=== PATIENT | female | born 1945 | race Two or more races ===

== ENCOUNTER → 2023-05-27 | Emergency (ER) | payer OTHER ==
[~2023-05-27] VITALS: Ht 152.4 cm; Wt 45.4 kg
[~2023-05-27] MED LIST: EFFEXOR; EXELON1 EAC2; ZYPREXA10 MG
== END | disposition home or self-care (01) ==
LOC: ER 21:30
DX: K94.23 Gastrostomy malfunction (principal)

== ENCOUNTER 2024-02-20 12:35 | Inpatient (IN) | payer OTHER ==
[~2024-02-20] VITALS: Ht 157.5 cm; Wt 43.1 kg
[2024-02-20] MEDS ORDERED: 0.9 % SODIUM CHLORIDE 1,000 ML IV ONE (14:30)
[2024-02-20] MEDS ORDERED: PANTOPRAZOLE SODIUM 40 MG/VIAL VIAL IV PUSH ONE (14:30)
[2024-02-20] MEDS ORDERED: ONDANSETRON HCL 2 MG/ML VIAL IV ONE (14:30)
[2024-02-20] MEDS ORDERED: CEFTRIAXONE SODIUM 1,000 MG VIAL IV ONE ×2 (14:30→18:00)
[2024-02-20] MEDS ORDERED: ONDANSETRON HCL 2 MG/ML VIAL ONE (14:33)
[2024-02-20] MEDS ORDERED: CEFTRIAXONE SODIUM 1,000 MG VIAL ONE ×2 (14:34→19:04)
[2024-02-20 14:56] LABS: HEMATOCRIT 42.1 % (36.0-45.00); HEMOGLOBIN 14.4 g/dL (12.0-15.00); MEAN CELL VOLUME 93.2 fL (80.00-100.00); MEAN CORPUSCULAR HGB CONC 34.3 g/dl (32.0-36.0); PLATELET COUNT 277 K/uL (150-450); RED BLOOD COUNT 4.52 M/uL (4.00-6.00); RED CELL DISTRIBUTION WIDTH 13.7 % (11.5-14.5)
[2024-02-20 15:14] LABS: PH,URINE 6.5 (5.0-8.0); URINE APPEARANCE Cloudy; URINE BILIRRUBIN Negative (NEGATIVE); URINE BLOOD Trace; URINE COLOR Yellow; URINE GLUCOSE Negative (NEGATIVE); URINE LEUKOCYTE Moderate; URINE NITRATE Negative; URINE PROTEIN 30 (NEGATIVE)
[2024-02-20 15:18] LABS: URINE CAST 12.82 uL (0.0-1.40); URINE EPITHELIAL CELLS 18.5 uL (0.0-38.8); URINE RBC 18.9 uL (0.0-20.8); URINE WBC 263.9 uL (0.0-23.2)
[2024-02-20 16:07] LABS: URINE BACTERIA > 9821.5 uL (0.0-1933); URINE KETONE 40 (NEGATIVE)
[2024-02-20 16:16] LABS: INR 1.08; PROTHROMBIN TIME 11.7 SECONDS (9.0-11.5)
[2024-02-20 16:19] LABS: ALBUMIN 3.3 gm/dL (3.4-5.0); BILIRUBIN TOTAL 0.28 mg/dL (0.3-1.2); CALCIUM 9.5 mg/dL (8.5-10.1); CREATININE SERUM 1.02 mg/dL (0.55-1.02); GFR 52.28; GLOBULINA 3.7 G/DL (2.4-3.5); POTASSIUM 3.96 mEq/L (3.5-5.1)
[2024-02-20 18:55] LABS: ABG PH 7.439 (7.35-7.45); ABG pCO2 46.5 mmHg (35-45)
[2024-02-20 18:56] LABS: ABG PO2 79.1 mmHg (80-100); BASE EXCESS 5.7 mmol/l; BICARBONATE 30.8 mmol/l (23-25); SaO2 94.5 %; Tco2 32.3 mmol/l; o2 21 %
[2024-02-20 18:57] LABS: allen test SATISFACTORY; puncture site RADIAL LEFT
[2024-02-20] MEDS ORDERED: PANTOPRAZOLE SODIUM 40 MG/VIAL VIAL IV ONE (19:30)
[2024-02-20] MEDS ORDERED: 0.9 % SODIUM CHLORIDE 1,000 ML IV STA (19:51)
[2024-02-20] MEDS ORDERED: CEFTRIAXONE SODIUM 1,000 MG VIAL IV STA (20:00)
[2024-02-20] MEDS ORDERED: METROnidazole 500 MG TABLET PO STA (20:03)
[2024-02-20] MEDS ORDERED: NOREPINEPHRINE BITARTRATE 8 MG in DEXTROSE 5 % IN WATER 250 ML IV SCH (20:15)
[2024-02-20] MEDS ORDERED: RINGERS SOLUTION,LACTATED 1,000 ML IV SCH (20:30)
[2024-02-20 20:49] LABS: HEMATOCRIT 40.2 % (36.0-45.00); HEMOGLOBIN 13.5 g/dL (12.0-15.00); MEAN CELL VOLUME 95.3 fL (80.00-100.00); MEAN CORPUSCULAR HEMOGLOBIN 32.1 pg (27.00-32.0); MEAN CORPUSCULAR HGB CONC 33.7 g/dl (32.0-36.0); PLATELET COUNT 272 K/uL (150-450); RED BLOOD COUNT 4.21 M/uL (4.00-6.00); RED CELL DISTRIBUTION WIDTH 13.7 % (11.5-14.5)
[2024-02-20] MEDS ORDERED: PANTOPRAZOLE SODIUM 40 MG/VIAL VIAL IV SCH (21:00)
[2024-02-20 21:39] VITALS: BP 104/53
[2024-02-20 23:00] VITALS: BP 103/50; O2SAT 100
[2024-02-20 23:27] LABS: CALCIUM 9.2 mg/dL (8.5-10.1); CHOL HDL RATIO 2.4 (0-5.0); CREATININE SERUM 1.22 mg/dL (0.55-1.02); GFR 42.52; POTASSIUM 3.72 mEq/L (3.5-5.1)
[2024-02-21] VITALS (11 sets, daily range): BP systolic 94–171; BP diastolic 50–65; O2SAT 97–100
[2024-02-21] MEDS ORDERED: PIPERACILLIN/TAZOBACTAM SODIUM 2.25 GM in DEXTROSE 5 % IN WATER 50 ML IV SCH
[2024-02-21] MEDS ORDERED: METROnidazole 500 MG TABLET PO SCH (01:00)
[2024-02-21 06:23] LABS: HEMATOCRIT 33.4 % (36.0-45.00); HEMOGLOBIN 11.4 g/dL (12.0-15.00); MEAN CELL VOLUME 94.3 fL (80.00-100.00); MEAN CORPUSCULAR HEMOGLOBIN 32.3 pg (27.00-32.0); MEAN CORPUSCULAR HGB CONC 34.2 g/dl (32.0-36.0); PLATELET COUNT 235 K/uL (150-450); RED BLOOD COUNT 3.55 M/uL (4.00-6.00); RED CELL DISTRIBUTION WIDTH 13.3 % (11.5-14.5)
[2024-02-21 06:53] LABS: ALBUMIN 2.9 gm/dL (3.4-5.0); BILIRUBIN TOTAL 0.3 mg/dL (0.3-1.2); CALCIUM 9.4 mg/dL (8.5-10.1); CREATININE SERUM 0.95 mg/dL (0.55-1.02); GFR 56.74; GLOBULINA 3.1 G/DL (2.4-3.5); MAGNESIUM 2.2 mg/dL (1.8-2.4); PHOSPHOROUS 3.1 mg/dL (2.5-4.9); POTASSIUM 4.03 mEq/L (3.5-5.1)
[2024-02-21] MEDS ORDERED: CHLORHEXIDINE GLUCONATE 120 ML BOTTLE TOP ONE (08:08)
[2024-02-21] MEDS ORDERED: CEFTRIAXONE SODIUM 2,000 MG in 0.9 % SODIUM CHLORIDE 100 ML IV SCH (09:00)
[2024-02-21] MEDS ORDERED: SOD FERRIC GLUC COMPLX/SUCROSE 62.5 MG in 0.9 % SODIUM CHLORIDE 50 ML IV SCH (12:00)
[2024-02-21] MEDS ORDERED: DIATRIZOATE MEGLUMINE, SODIUM 30 ML BOTTLE ONE (13:10)
[2024-02-21] MEDS ORDERED: MORPHINE SULFATE 2 MG/ML CARTRIDGE IV PRN (15:45)
[2024-02-21] MEDS ORDERED: ENALAPRILAT DIHYDRATE 1.25 MG/ML VIAL IV PRN (15:45)
[2024-02-21] MEDS ORDERED: AA 4.25%/CAL/LYTES/DEXT 5% 1,000 ML PERIFERAL SCH (17:00)
[2024-02-21] MEDS ORDERED: ENALAPRILAT DIHYDRATE 1.25 MG/ML VIAL IV STA (21:03)
[2024-02-22 01:30] VITALS: BP 90/50; O2SAT 99
[2024-02-22 04:44] VITALS: BP 99/62; O2SAT 96
[2024-02-22 06:48] LABS: HEMATOCRIT 27.2 % (36.0-45.00); HEMOGLOBIN 9.3 g/dL (12.0-15.00); MEAN CELL VOLUME 94.1 fL (80.00-100.00); MEAN CORPUSCULAR HEMOGLOBIN 32.2 pg (27.00-32.0); MEAN CORPUSCULAR HGB CONC 34.2 g/dl (32.0-36.0); PLATELET COUNT 162 K/uL (150-450); RED BLOOD COUNT 2.89 M/uL (4.00-6.00); RED CELL DISTRIBUTION WIDTH 13.7 % (11.5-14.5)
[2024-02-22 07:27] LABS: INR 1.08; PARTIAL THROMBOPLASTIN TIME 33.4 SECONDS (22.0-34.0); PROTHROMBIN TIME 11.7 SECONDS (9.0-11.5)
[2024-02-22 07:54] LABS: ALBUMIN 2.7 gm/dL (3.4-5.0); ALKALINE PHOSPHATASE 77 U/L (50-136); ALT/SGPT 23 U/L (12-78); ANION GAP 14 (10.0-20.0); AST/SGOT 36 U/L (15-37); BILIRUBIN TOTAL 0.31 mg/dL (0.3-1.2); BILIRUBIN,CONJUGATED < 0.10 mg/dL (0.0-0.2); BILIRUBIN,UNCONJUGATED 0.21 mg/dL (0.0-0.6); BLOOD UREA NITROGEN 20 mg/dL (7-18); BUN CREA RATIO 38 (7.0-25.0); CALCIUM 8.5 mg/dL (8.5-10.1); CARBON DIOXIDE 32 mEq/L (21-32); CHLORIDE 102 mmol/L (98-107); CHOL HDL RATIO 2.7 (0-5.0); CHOLESTEROL 148 mg/dL (0-200); CREATININE SERUM 0.52 mg/dL (0.55-1.02); GFR 113.75; GLOBULINA 2.3 G/DL (2.4-3.5); GLUCOSE FASTING 98 mg/dL (65-100); HDL 55 mg/dl (40-60); LDL 81 mg/dl (0-130); OSMOLALITY SERUM 289 MOSM/KG (275-295); POTASSIUM 3.72 mEq/L (3.5-5.1); SODIUM 144 mmol/L (136-145); TOTAL IRON BINDING CAPACITY 210 ug/dl (250-450); TRIGLYCERIDES 58 mg/dL (0-150); VLDL 11 (0-39)
[2024-02-22 08:39] VITALS: BP 145/62
[2024-02-22] MEDS ORDERED: NA PHOS,M-B/NA PHOS,DI-BA 1 BOTTLE ENEMA RECTAL NR (12:30)
[2024-02-22] MEDS ORDERED: PIPERACILLIN/TAZOBACTAM SODIUM 3.375 GM in 0.9 % SODIUM CHLORIDE 100 ML IV SCH (18:00)
[2024-02-22 18:02] VITALS: BP 147/48
[2024-02-22] MEDS ORDERED: LOSARTAN POTASSIUM 25 MG TABLET PO SCH (19:02)
[2024-02-23 01:36] VITALS: BP 150/55
[2024-02-23 06:54] LABS: UREA CLEARANCE 22.7 ML/MIN
[2024-02-23 08:51] VITALS: BP 140/98
[2024-02-23] MEDS ORDERED: PANTOPRAZOLE SODIUM 40 MG/VIAL VIAL IV SCH (09:00)
[2024-02-23 16:56] VITALS: BP 194/71
[2024-02-23] MEDS ORDERED: LOSARTAN POTASSIUM 25 MG TABLET PO SCH (17:00)
[2024-02-24 02:41] VITALS: BP 160/70; O2SAT 97
[2024-02-24 06:39] LABS: HEMATOCRIT 26.5 % (36.0-45.00); HEMOGLOBIN 9.2 g/dL (12.0-15.00); MEAN CELL VOLUME 93.8 fL (80.00-100.00); MEAN CORPUSCULAR HEMOGLOBIN 32.6 pg (27.00-32.0); MEAN CORPUSCULAR HGB CONC 34.7 g/dl (32.0-36.0); PLATELET COUNT 184 K/uL (150-450); RED BLOOD COUNT 2.82 M/uL (4.00-6.00); RED CELL DISTRIBUTION WIDTH 13.4 % (11.5-14.5)
[2024-02-24 09:10] VITALS: BP 148/47
[2024-02-24] MEDS ORDERED: ACETAMINOPHEN 325 MG TABLET PO PRN (15:15)
[2024-02-24 18:27] VITALS: BP 150/71
[2024-02-25 01:02] VITALS: BP 118/64; O2SAT 97
[2024-02-25 06:25] LABS: HEMATOCRIT 29.2 % (36.0-45.00); MEAN CELL VOLUME 94.6 fL (80.00-100.00); MEAN CORPUSCULAR HEMOGLOBIN 32.5 pg (27.00-32.0); MEAN CORPUSCULAR HGB CONC 34.3 g/dl (32.0-36.0); PLATELET COUNT 203 K/uL (150-450); RED BLOOD COUNT 3.09 M/uL (4.00-6.00); RED CELL DISTRIBUTION WIDTH 13.1 % (11.5-14.5)
[2024-02-25 07:10] LABS: ALBUMIN 2.7 gm/dL (3.4-5.0); BILIRUBIN TOTAL 0.5 mg/dL (0.3-1.2); CALCIUM 8.3 mg/dL (8.5-10.1); CREATININE SERUM 0.35 mg/dL (0.55-1.02); GFR 179.63; GLOBULINA 2.5 G/DL (2.4-3.5); POTASSIUM 3.82 mEq/L (3.5-5.1); TOTAL PROTEIN 5.2 gm/dL (6.4-8.2)
[2024-02-25 07:40] LABS: PHOSPHOROUS 1.8 mg/dL (2.5-4.9)
[2024-02-25 09:40] VITALS: BP 155/77
[2024-02-25] MEDS ORDERED: POTASSIUM PHOS,M-BASIC-D-BASIC 3 MM/ML VIAL IV SCH (17:00)
[2024-02-25 17:49] VITALS: BP 116/73
[2024-02-26 00:28] VITALS: BP 150/78
[2024-02-26 09:11] VITALS: BP 128/59
[2024-02-26] MEDS ORDERED: LOSARTAN POTASS25 MG GT (13:06)
[2024-02-26] MEDS ORDERED: CEFDINIR300 MG PO (13:06)
[2024-02-26 16:40] VITALS: BP 160/55; O2SAT 97
== END 2024-02-26 17:56 | disposition home or self-care (01) | DRG 871 ==
LOC: ER 12:35 → ICU-2 20:44 → MEDI 02-21 12:45
PROVIDERS: General Practice; Nurse Practitioner Family; ADMIT Internal Medicine; ATTEND Internal Medicine
PROC: BW24YZZ Computerized Tomography (CT Scan) of Chest and Abdomen using Other Contrast (ICD-10-PCS; principal; 2024-02-20)
PROC: BW21YZZ Computerized Tomography (CT Scan) of Abdomen and Pelvis using Other Contrast (ICD-10-PCS; 2024-02-20)
PROC: BW21YZZ Computerized Tomography (CT Scan) of Abdomen and Pelvis using Other Contrast (ICD-10-PCS; 2024-02-21)
DX: A41.9 Sepsis, unspecified organism (principal); J69.0 Pneumonitis due to inhalation of food and vomit; R65.21 Severe sepsis with septic shock; R57.1 Hypovolemic shock; N39.0 Urinary tract infection, site not specified; E87.1 Hypo-osmolality and hyponatremia; N17.9 Acute kidney failure, unspecified; K94.23 Gastrostomy malfunction; K31.1 Adult hypertrophic pyloric stenosis; J90 Pleural effusion, not elsewhere classified; I95.9 Hypotension, unspecified; E86.0 Dehydration; Z74.01 Bed confinement status; G31.83 Neurocognitive disorder with Lewy bodies; F02.80 Dementia in other diseases classified elsewhere, unspecified severity, without behavioral disturbance, psychotic disturbance, mood disturbance, and anxiety; D64.9 Anemia, unspecified; I10 Essential (primary) hypertension; B96.1 Klebsiella pneumoniae [K. pneumoniae] as the cause of diseases classified elsewhere